=== PATIENT | male | born 1970 | race Caucasian/White ===

== ENCOUNTER 2022-12-07 08:30 | Emergency (ER) | payer MEDICAID ==
[~2022-12-07] VITALS: Ht 170.2 cm; Wt 80.8 kg
[~2022-12-07 08:30] MED LIST: AMLO10TA4 PO
[2022-12-07 08:45] VITALS: BP 175/106; PULSE 99; RESP 18; TEMP 97.4; O2SAT 98
== END 2022-12-07 10:36 | disposition left against medical advice (07) ==
LOC: ER 08:30
DX: M54.50 Low back pain, unspecified (principal); Z53.21 Procedure and treatment not carried out due to patient leaving prior to being seen by health care provider
CPT/HCPCS: 99281